=== PATIENT | female | born 1965 | race Caucasian/White ===

== ENCOUNTER 2025-08-01 23:12 | Inpatient (IN) | payer BC, SELFPAY ==
--- NOTE | ~2025-08-01 | XR_ITS ---
CLINICAL HISTORY: epigastric pain 1 view chest x-ray Comparison: None provided Findings: Low lung volumes with mild bibasilar atelectasis and/or pneumonitis. Mild emphysematous changes suggested. Mild/borderline cardiomegaly accentuated by AP technique. No definite pneumothorax or pleural effusion. Degenerative changes include imaged left shoulder. IMPRESSION: Mild bibasilar atelectasis/pneumonitis. This document has been electronically signed by: Chip Phillips MD on 08/02/2025 01:29:22
--- NOTE | ~2025-08-01 | US_ITS ---
CLINICAL HISTORY: GBD and CBD only --- Additional Notes or Special Instructions: concern for cholecystitis US abdomen limited Comparison: CT/SR - CT ABDOMEN PELVIS W IV CON - 08/02/25 00:36 EST Findings: The common duct is 6.3 mm in diameter. Multiple echogenic, shadowing gallstones are identified within the gallbladder lumen. The gallbladder wall is borderline thickened, measuring 3 mm. Minimal pericholecystic fluid visualized. Pain reported at the right upper quadrant during the examination according to the technologist. IMPRESSION: 1. Cholelithiasis with borderline gallbladder wall thickening measuring 3 mm in thickness. There is minimal pericholecystic fluid. These findings may be seen with acute cholecystitis in the appropriate clinical setting. Clinical correlation is advised. May consider nuclear medicine HIDA scan for further evaluation as clinically directed. This document has been electronically signed by: Jaxson Rodriguez MD on 08/02/2025 03:36:50
--- NOTE | ~2025-08-01 | CT_ITS ---
CLINICAL HISTORY: RLQ and RUQ pain CT abdomen and pelvis with contrast Comparison: None provided Findings: Mild bibasilar atelectasis/pneumonitis of the imaged lung bases. Asymmetry of the imaged glandular tissue in the [id number]. Small pericardial effusion with mild/borderline cardiomegaly. Mild periportal edema. Imaged CBD measures 7 mm diameter. Mild pericholecystic fluid is nonspecific. Distention of the gallbladder noted. Adrenal glands are normal. Pancreas partly obscured and otherwise unremarkable. The spleen is nonenlarged. Apparent filtered contrast could obscure medullary calcinosis and small stones. No hydronephrosis. Small retroperitoneal and mesenteric lymph nodes are nonspecific and likely reactive. No small bowel obstruction. Severe stool burden is noted, including in the cecum. The appendix is not definitively seen. Question mild wall thickening of the terminal ileum as can be associated with enteritis and inflammatory bowel disease. Metal artifacts noted including from umbilicus piercing. Mild free fluid in the pelvis nonspecific and may be reactive. Uterus is anteverted. No adnexal soft tissue mass by CT. Mild wall thickening of the urinary bladder is noted. Small bilateral fat containing inguinal hernias. Degenerative changes include the hips, left worse than right. Degenerative disc changes and facet arthropathy are multifocal. 7 mm retrolisthesis of the L1-L2, with mild-moderate spinal stenosis by CT. 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 IMPRESSION: 1. Pericholecystic fluid about the distended gallbladder. This is nonspecific by CT and can be seen with cholecystitis. 2. Mild periportal edema. 3. Severe stool burden. No small bowel obstruction. This document has been electronically signed by: Chip Phillips MD on 08/02/2025 01:42:07
[2025-08-01 23:17] VITALS: BP 122/72; PULSE 78; RESP 16; TEMP 2.6; TEMP 36.6; O2SAT 97; BMI 29.2
--- NOTE | 2025-08-01 23:24 | ED_ITS ---
HPI - Abdominal Pain General Chief Complaint: Abdominal Pain Stated Complaint: abd pain Time Seen by Provider: 08/01/25 23:24 Source: patient and RN notes reviewed Mode of arrival: ambulatory Limitations: no limitations History of Present Illness ED Provider: Radha Galo PA-C HPI narrative: The patient presents to the ED with a 3-day history of persistent, constant epigastric abdominal pain that began Tuesday evening and has progressively worsened. Pain radiates to/associated tenderness in the right upper and right lower quadrants. The pain is described as constant (not throbbing or cramping) and currently ?pretty bad,? interfering with sleep for the past 2-3 nights. Associated symptoms include nausea and multiple episodes of non-bloody emesis (one episode Tuesday, 1?2 episodes Tuesday, and two episodes today; last episode 2?3 hours prior to evaluation). She reports poor appetite and has not eaten since Thanksgiving lunch today; able to sip water without worsening pain. Denies diarrhea, hematemesis, or excessive alcohol use. Stools are soft but not loose; voiding urine normally. Slight discomfort with deep inspiration over the affected area. No prior abdominal surgeries. She recalls one previous, less- severe episode of similar pain but otherwise no history of comparable symptoms. No fevers or coughing. No urinary symptoms. No history of abdominal surgeries. No analgesics at home. She cannot recall this occurring in past. She relays her mom didn't have appendicitis until the age of 60. MD elicited complaint: abdominal pain Related Data Allergies Allergy/AdvReac Type Severity Reaction Status Date / Time No Known Allergies Allergy Verified 08/01/25 23:17 Review of Systems Review of Systems Yes all other systems are reviewed and are negative PMFSH Past Medical History Attestation statement: The following information was validated with the patient. Source: nursing notes reviewed Social History Social History Advance Directives: No Advance Directives Information Provided: Yes Physical Exam ED Exam Exam: General: Appears in no acute distress, appears well nourished body habitus is overweight, appears stated age. No septic or ill-appearing. Vitals reviewed normal, PMH/Social and Surgical hx reviewed including allergies and current medications. -no prior visits in ED here Head: Normocephalic, no obvious trauma or skin lesions noted. Eyes: EOMI, conjunctiva and sclera clear ENMT: dry oral mucosa, tongue and uvula midline, no trismus, lips normal, no lymphadenopathy Neck: trachea midline Cardiovascular: peripheral perfusion normal, Regular heart rate, regular rhythm Respiratory: no respiratory distress, lungs clear, chest wall nontender Abdomen: nondistended, TTP to RUQ, epigastric and RLQ, no gaurding or rigidity, negative peritoneal signs, no rebound ttp, no flank, CVA or bladder TTP Extremities: warm and moving without difficulty Psych: Cooperative and calm Neuro: Alert and oriented. Vital Signs: Vital Signs - 24 hr 08/01/25 23:17 08/02/25 00:06 Temperature 36.6 F L 98.4 F Pulse Rate 78 Respiratory Rate 16 Blood Pressure 122/72 Pulse Oximetry 97 Oxygen Delivery Method Room Air BMI result Body Mass Index 29.2 Medical Decision Making Medical Decision Making MDM Narrative: 60 year old F arriving to the ED today for evaluation of abdominal pain with associated n/v over 2 days. Upon arrival to ED, she is afebrile, normotensive and not appearing in any acute distress. She is not toxic or ill appearing. On physical exam, she has generalized tenderness in both the right lower and right upper quadrant but without gaurding or peritoneal signs. As pain was reported as moderate and due to decreased oral intake, abd labs, CT scan of abd/pelvis, IVFs and IV pain medications were ordered. She is denying any respiratory and sxs. Differentials at this point include hepatobiliary disease, pancreatitis, viral vs food gastroenteritis, noninfectious diverticulitis/colitis. Very less likely without sxs but also considered kidney stone and UTI. Patient does not meet SIRS criteria at this time and sepsis is not suspected. Mild leukocytosis of 11.9 with shift. CMP reassuring: no electrolyte imbalance, hepatobiliary disease, pancreatitis noted in labs, UA without concern for infection. prelim CXR without obvious mass or hiatal hernia. CT scan gb appears abd, no SBO noted Formal reads: 145: CT scan: IMPRESSION: 1. Pericholecystic fluid about the distended gallbladder. This is nonspecific by CT and can be seen with cholecystitis. 2. Mild periportal edema. 3. Severe stool burden. No small bowel obstruction CXR: IMPRESSION: Mild bibasilar atelectasis/pneumonitis. The mild bibasilar findings likely to be reactive changes rather than primary pulmonary pathology in this current presentation. Given CT findings, this strongly suggests acute cholecystitis. The gallbladder is likely in the edematous phase of acute cholecystitis. The stool burden on CT could explain patient's RLQ tenderness. Will empirically order 2g of cefotetan and another liter if IVF. Patient still indorsing pain but not nauseous, and additional morphine dose has been ordered. Lactic acid normal. 300: US of GBD abd CBD supportive of acute cholecystitis. Consult to general surgeon Dr. Carvalho has been placed. He has accepted patient to his service. Differential Diagnosis Differential Diagnoses: The differential diagnosis associated with the presentation includes See MDM Admission/Observation Consideration of admission/observation: Escalation of care including admission/observation considered Consult Healthcare Provider Management of the patient was discussed with: Mobile Sales Technician (Dr. Carvalho general surgeon) Lab Data [facility] Lab Attestation statement: I reviewed the patient's lab results. 08/01/25 23:41 08/01/25 23:41 Labs: Lab Results 08/01/25 08/02/25 08/02/25 Range/Units 23:41 01:16 02:28 WBC 11.9 H (4.8-10.8) X10*3/uL RBC 3.92 L (4.20-5.50) X10*6/uL Hgb 12.7 (12.0-16.0) g/dl Hct 36.7 L (37.0-47.0) % MCV 93.6 (80.0-98.0) fL MCH 32.4 (27.0-33.0) pg MCHC 34.6 (31.0-35.0) g/dl RDW 12.0 (11.0-16.0) % Plt Count 302 (160-400) X10*3/uL MPV 9.9 (9.4-12.3) fL Immature Gran % (Auto) 0.3 (0.0-0.4) % Neut % (Auto) 84.3 H (45-73) % Lymph % (Auto) 8.3 L (20-40) % [place] % (Auto) 6.1 (2-11) % Eos % (Auto) 0.7 (0-4) % Baso % (Auto) 0.3 (0-2) % Lymph # (Auto) 1.0 L (1.2-4.9) X10*3/uL [place] # (Auto) 0.7 (0.1-1.2) X10*3/uL Eos # (Auto) 0.1 (0.0-0.4) X10*3/uL Baso # (Auto) 0.0 (0.0-0.2) X10*3/uL Abs Immat Gran (auto) 0.03 (0.00-0.03) X10*3/uL Absolute Neuts (auto) 10.0 H (2.0-8.3) x10*3/uL Absolute Nucleated RBC 0.000 (0.0-0.012) X10*3/uL Nucleated RBC % (auto) 0.0 (0.0-0.2) /100WBC Sodium 138 (135-145) mmol/L Potassium 3.7 (3.3-5.1) mmol/L Chloride 107 (96-108) mmol/L Carbon Dioxide 22 (22-29) mmol/L Anion Gap 13 (12-20) BUN 12 (9-16) mg/dL Creatinine 0.74 (0.5-1.4) mg/dL Estim Creat Clear Calc 79.2 Estimated GFR > 60 Random Glucose 174 H (60-115) mg/dL Lactic Acid 1.1 (0.5-2.0) mmol/L Calcium 9.3 (8.4-10.2) mg/dL Total Bilirubin 0.4 (0.0-1.0) mg/dL AST 24 (5-31) U/L ALT 16 (0-31) U/L Alkaline Phosphatase 53 (39-117) U/L Total Protein 6.8 (6.5-8.0) g/dL Albumin 4.3 (3.5-5.0) g/dL Lipase 37 (8-78) U/L Urine Color Yellow Urine Appearance Clear Urine pH 6.0 (5.0-9.0) Ur Specific [place] >= 1.030 H (1.005-1.025) Urine Protein 30 (1+) H (Neg-Trace) mg/dL Urine Glucose (UA) Negative (Negative) mg/dL Urine Ketones Negative (Negative) mg/dL Urine Blood Small (1+) H (Negative) Urine Nitrite Negative (Negative) Ur Leukocyte Esterase Negative (Negative) Urine RBC 6-10 H (0-2) /HPF Urine WBC 0-5 (0-5) /HPF Ur Squamous Epith Cells 0-2 (0-2) /HPF Urine Bacteria None Seen (None Seen) Hyaline Casts 0-2 (0-2) /LPF Independent Interpretation I performed an independent interpretation of an: Plain X-Ray, Ultrasound and CT Scan Interpretation: See MDM Radiology Impression Discussion of test interpretation with radiology: I have reviewed the radiologist's reading. Prescription Management I considered prescription management with: Antibiotic Medications Administered Generic Name Dose Route Start Last Admin Trade Name Freq PRN Reason Stop Dose Admin Sodium Chloride 1,000 mls @ 999 mls/hr 08/02/25 02:16 08/02/25 03:11 Ns IV 08/02/25 03:16 999 mls/hr .Q1H1M ONE Administration Discontinued Medications Generic Name Dose Route Start Last Admin Trade Name Freq PRN Reason Stop Dose Admin Cefotetan Disodium 2 gm 08/02/25 02:14 08/02/25 03:08 Cefotetan Disodium 2 Gm Vial IVPUSH 08/02/25 02:15 2 gm ONCE ONE Administration Sodium Chloride 1,000 mls @ 999 mls/hr 08/01/25 23:47 08/02/25 00:02 Ns IV 08/02/25 00:47 999 mls/hr .Q1H1M ONE Administration Iohexol 85 ml 08/02/25 00:56 08/02/25 00:56 Iohexol 350 Mg/Ml 100 Ml Infus..Btl IV 08/02/25 00:57 85 ml ONCE ONE Administration Morphine Sulfate 2 mg 08/01/25 23:47 08/02/25 00:02 Morphine Sulfate 4 Mg/Ml Cartridge IVPUSH 08/01/25 23:48 2 mg ONCE ONE Administration Protocol Morphine Sulfate 4 mg 08/02/25 02:58 08/02/25 03:08 Morphine Sulfate 4 Mg/Ml Cartridge IVPUSH 08/02/25 02:59 4 mg ONCE ONE Administration Protocol Ondansetron HCl 4 mg 08/01/25 23:25 08/02/25 00:02 Ondansetron Hcl 4 Mg/2 Ml Vial IVPUSH 08/01/25 23:26 4 mg ONCE ONE Administration Critical Care Time Critical Care Time Critical Care Time: Yes Total Critical Care Time: 35 Attestation: This patient required critical care. Due to the fact that the patient required a significant amount of one on one physician ? patient contact time, ordering and review of studies, arranging urgent treatment with development of a management plan, evaluation of patient's response to treatment with frequent reassessments, and discussions with other providers this patient required critical care time in excess of 30 minutes. Critical care time was indicated due to the inherent instability and/or potential for instability in this patient. The critical care time that is allocated to this patient is above and beyond any time spent on any other billable procedures performed on this patient. Discharge Plan Discharge Clinical Impression: Acute cholecystitis Abdominal pain Qualifiers: Abdominal location: multiple sites Qualified Code(s): R10.85 - Abdominal pain of multiple sites Patient Disposition: Admitted As Inpatient Print Language: Estonian
[2025-08-01 23:52] LABS: Hematocrit 36.7 % (37.0-47.0); Hemoglobin 12.7 g/dl (12.0-16.0); Imm Gran Abs Auto 0.03 X10*3/uL (0.00-0.03); Imm Gran Pct Auto 0.3 % (0.0-0.4); Lymphocytes Absolute Auto 1.0 X10*3/uL (1.2-4.9); MANUAL DIFF FLAG NO; Mean Corpuscular HGB Conc 34.6 g/dl (31.0-35.0); Mean Corpuscular Hemoglobin 32.4 pg (27.0-33.0); Mean Corpuscular Volume 93.6 fL (80.0-98.0); NRBC Abs Auto 0.000 X10*3/uL (0.0-0.012); NRBC Pct Auto 0.0 /100WBC (0.0-0.2); Platelet Count 302 X10*3/uL (160-400); Red Blood Count 3.92 X10*6/uL (4.20-5.50); White Blood Count 11.9 X10*3/uL (4.8-10.8)
--- OUTSIDE RECORDS SUMMARY | 2025-08-01 23:54 | XMS_ITS | Encounter Summary ---
Author Organization [facility] Address [address] [place] [address] Care Team Providers Care Hot Box Checker Name Role Phone Dunia Barksdale MD Primary Care Provider Encounter Details Date Type Department Care Team (Late st Contact Info) Description 10/14/2017 myChart Message [address] [id number] Unmanned Equipment Operator: Jf Mott MD [address] [place] [phone] RE: Referral Request Social History Tobacco Use Types Packs/Day Years Used Date Smoking Tobacco: Never Smokeless Tobacco: Never Comments:: Comments Unknown Sex and Gender Information Value Date Recorded Sex Assigned at Female 10/24/2021 8:35 AM EST Legal Sex Female 8:07 AM EDT Gender Identity Female 10/24/2021 8:35 AM EST Sexual Orientation Straight 10/24/2021 8: 35 AM EST documented as of this encounter Plan of Treatment Upcoming Encounters Date Type Department Care Team (Late st Contact Info) Description 10/23/2025 1:00 PM EST Office Visit [address] [address] Unmanned Equipment Operator: Dunia Daniel MD [address] [place] [phone] documented as of this encounter Visit Diagnoses Not on filedocumented in this encounter Care Teams Hot Box Checker Relationship Specialty Start Date End Date Dunai Barksdale MD [address] [place] [address] PCP - General Family Medicine 01/07/25 documented as of this encounter
--- OUTSIDE RECORDS SUMMARY | 2025-08-01 23:54 | XMS_ITS | Encounter Summary ---
Author Organization [facility] Address [address] [place] [address] Care Team Providers Care Sfdc Technical Architect Name Role Phone Dunia Barksdale MD Primary Care Provider Encounter Details Date Type Department Care Team (Late st Contact Info) Description 09/27/2017 myChart Message [address] [phone] Phlebotomy Services Technician: Jf Mott MD [address] [place] [phone] RE: Visit Follow-Up Question Social History Tobacco Use Types Packs/Day Years [...] Description 10/23/2025 1:00 PM EST Office Visit [address] [phone] Phlebotomy Services Technician: Dunia Daniel MD [address] [place] [phone] documented as of this encounter Visit Diagnoses Not on filedocumented in this encounter Care Teams Sfdc Technical Architect Relationship Specialty Start Date End Date Dunia Barksdale MD [address] [place] [address] PCP - General Family Medicine 01/07/25 documented as of this encounter
--- OUTSIDE RECORDS SUMMARY | 2025-08-01 23:54 | XMS_ITS | Clinical Summary ---
Author Organization [facility] Address [address] [place] [address] Care Team Providers Care Planisher Name Role Phone Dunia Barksdale MD Primary Care Provider Allergies No known active allergies Medications clobetasoL (TEMOVATE) 0.05% cream Apply topically to the affected area 2 times a day. 30 g 3 4 Active sertraline (ZOLOFT) 100 mg tablet Take 1.5 tablets (150 mg total) by mouth once a day. 270 tablet 5 12/16/19 26 Active Active Problems Problem Noted Date Diagnosed Date Healthcare maintenance 08/09/2017 Assessment & Plan (04/19/2024 2:51 PM EDT): Healthcare maintenance visit done, I reviewed healthcare gaps and she is up-to-date with the immunizations and labs that she would like. I will check lipids and A1c today I would recommend fall to get the flu and COVID. Fit test given for colonoscopy screening return in 1 year and will be with a new provider Assessment & Plan (10/27/2021 2:38 PM EST): She is overdue for many things, mammogram will be ordered lipids and A1c will be done immunizations up-to-date, fit test was scheduled. Next year she can have her mammogram diet exercise all discussed. Return in 1 year or sooner. Assessment & Plan (06/20/2019 6:06 PM EDT): Overall generally well, weight is up which is a concern continue swimming on a regular basis I did discuss diet it seems like it is fairly good. Mammogram will be scheduled A1c flu shot and shot I will be given today. Lipids have been excellent no need to recheck that return on a yearly basis. Cancer screening discussed, will opt for a fit test today. Assessment & Plan (08/09/2017 3:08 PM EST): Pap GC and chlamydia test done, lipids and other labs will be done as well. Concerned about the weight loss but it seems stress related. Will check labs see above. We will give her the phone number to call for a mammogram. Immunizations up-to-date. She does not want a flu shot. She does have a lot of stressors but with good support from her boyfriend Allergic rhinitis 03/28/2017 Conductive hearing loss, middle ear 05/20/2015 Assessment & Plan (04/19/2024 2:50 PM EDT): For now she would rather just watch and follow reassured that there is no wax blockage and that this could be a long-term issue reevaluation by ENT is something possible that we could do she lives in [facility] may be at [facility] Assessment & Plan (10/27/2021 2:37 PM EST): We actually talked about irrigation of the right ear which she is always had problems in that right ear, however at the end of the visit 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 Eczema 10/25/2013 Assessment & Plan (04/19/2024 2:50 PM EDT): Refill clobetasol to use on a limited basis for her dyshidrotic eczema on her fingers Assessment & Plan (10/27/2021 2:37 PM EST): Minor localized area on her finger she wants a refill of Temovate that she will use only for her finger prescription was sent Assessment & Plan (06/20/2019 6:07 PM EDT): Very mild and occasional eczema on her fingers. Betazole is worked before, discuss is a strong cream to just use sparingly on the hands only. Depression 10/25/2013 Assessment & Plan (04/19/2024 2:50 PM EDT): She is clinically stable doing well long-term on citalopram 1-1/2 pills a day and keeps her stable disease happy with that without any side effects no need at all to stop taper or change Assessment & Plan (10/27/2021 2:36 PM EST): She has had a lot of changes on the left, mostly positive except for her father dying. Relationship break-up trended to be a positive factor. She thinks the sertraline is helping and doing well and PHQ-9 was 4 and SCARLET-7 was 5 so I think mental health [place] she is doing well continue current dose return in 1 year Assessment & Plan (06/20/2019 6:06 PM EDT): She is in a much better place now depression is quite stable she is good overall plan music and singing along with a special and teaching. We did discuss her sertraline 100 mg tabs one half daily no need to cut down on the dose even though she is feeling well she would rather stay on it feels more comfortable with that. Assessment & Plan (08/09/2017 3:08 PM EST): She has multiple stressors going on will increase sertraline 150 mg total, and hopefully she has good support and will be talking to the Transifex potentially to help her with some of the work stressors per Prediabetes 08/08/2012 Assessment & Plan (04/19/2024 2:49 PM EDT): Off-and-on minimal prediabetes lifestyle discussed fairly healthy overall. Will check A1c and lipids today Assessment & Plan (10/27/2021 2:37 PM EST): She states her weight is up some diet is not optimal, A1c has been prediabetes about 5 to 6 years ago than normal the last few times I will check it today along with lipids Assessment & Plan (08/09/2017 3:08 PM EST): She has mild prediabetes A1c will be checked today, with a weight loss from stress doubt is going to be worse Resolved Problems Problem Noted Date Diagnosed Date Resolved Date Hyperglycemia 04/19/2024 04/19/2024 Abrasion of right cornea 10/30/2019 Chronic midline low back crescencio n without sciatica 04/03/2018 06/20/2019 Stress reaction 11/01/2017 06/20/2019 Abnormal weight loss 08/09/2017 019 Assessment & Plan (08/09/2017 3:08 PM EST): I believe the weight loss is more she was trying and then stress related but I will check CBC TSH A1c today. 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 Eustachian tube dysfunction 05/20/2015 08/09/2017 Encounters Date Type Department Care Team Description 06/18/2025 Orders Only [address] [address] Operating Cost Clerk: Mira Deleon MD 06/13/[address] [address] Operating Cost Clerk: Dunia Daniel MD 06/12/2025 myChart Message [address] [address] Operating Cost Clerk: Dunia Daniel MD Medication Refill 06/12/[address] [address] Operating Cost Clerk: Christian Abdalla MD 06/12/[address] [address] Operating Cost Clerk: Katie Knott MD from Last 3 Months Immunizations Immunization Administration Dates Next Due Covid-19 Monovalent Vaccine, Moderna, mRNA, PF 0 12/20/2020,11/22/2020 Diphtheria and Tetanus Toxoi ds, Adsorbed for Pediatric Use 10/31/2001 INFLUENZA, SPLIT VIRUS, TRIVALENT, PF 07/04/2012 ,08/04/2005 Influenza, Injectable, Quadrivalent, Preservativ e Free 06/20/2019 Tetanus Toxoid, Reduced Diph theria Toxoid, and Acellular Pertussis Vaccine, Adsorbed 05/06/2010 Tetanus and Diphtheria Toxoi ds, Adsorbed, Preservative Free (2 Lf of Tetanus Toxoid and 2 Lf of Diphtheria Toxoid) 06/20/2019 Tuberculin Skin Test; Purifi ed Protein Derivative Solution, Intradermal 11/01/2007 Family History Medical History Relation Name Comments No Known Problems Brother Heart disease Father No Known Problems Mother Other Other 1 Grandmother Fam wilver History of depression Other Other 2 Family history of No pertinent family history Breast cancer Sister Eri Relation Name Status Comments Brother Alive Father Mother Alive Other 1 Other 2 Sister Eri Alive dx'd age 59, [place] Social History Tobacco Use Types Packs/Day Years Used Date Smoking Tobacco: Never Smokeless Tobacco: Never Tobacco Cessation:Counseling Given: Not Answered Comments:: [facility] Utilities Answer Date Recorded In the past 12 months has th e electric, gas, oil, or water company threatened to shut off services in your home? No 04/16/2024 Hunger Vital Sign Answer Date Recorded Within the past 12 months, y ou worried that your food would run out before you got the money to buy more. Never true 04/16/20 24 Within the past 12 months, t he food you bought just didn't last and you didn't have money to get more. Never true 04/16/2024 Transportation Answer Date Recorded In the past 12 months, has l ack of reliable transportation kept you from medical appointments, meetings, work or from getting things needed for daily living? No 04/16/2024 Housing Answer Date Recorded Housing Risk Low 2 04/16/2024 Housing Risk Medium Not on file 04/16/2024 Housing Risk High Not on file 04/16/2024 What is your living situation today? [facility]AD[facility] 04/16/2024 Comments No Sex and Gender Information Value Date Recorded Sex Assigned at Female 10/24/2021 8:35 AM EST Legal Sex Female 8:07 AM EDT Gender Identity Female 10/24/2021 8:35 AM EST Sexual Orientation Straight 10/24/2021 8: 35 AM EST Last Filed Vital Signs Vital Sign Reading Time Taken Comments Blood Pressure 96/60 04/19/2024 9:41 AM EDT Pulse 65 04/19/2024 9:41 AM EDT Temperature 36.2 C (97.2 F) 04/19/2024 9:41 AM EDT Respiratory Rate - - Oxygen Saturation 96% 03/28/2017 11:16 AM EDT Inhaled Oxygen Concentration - - Weight 77.1 kg (170 lb) 04/19/2024 9:41 AM EDT Height 162.6 cm (5' 4 ) 04/19/2024 9:41 AM EDT Body Mass Index 29.18 04/19/2024 9:41 AM EDT Plan of Treatment Upcoming Encounters Date Type Department Care Team (Late st Contact Info) Description 10/23/2025 1:00 PM EST Office Visit [facility] [address] [place] [phone] Operating Cost Clerk: Dunia Daniel MD [address] [place] [address] [phone] Health Maintenance Due Date Last Done Comments Cologuard 1965 Colonoscopy 1965 Sigmoidoscopy 1965 Pneumococcal Vaccine: 50+ Years (1 of 1 - PCV) 2013 Zoster Vaccines (1 of 2) 2013 HPV and Pap Smear 07/04/2017 07/04/2012, , 11/01/2007, Additional history exists Pap Smear 08/09/2020 08/09/2017, 06/07, 05/06/2010, Additional history exists Alcohol/Substance Use Screening 09/05/2024 04/16/2024 Depression Screening and Follow-Up 09/05/2024 04/16/2024 Social Drivers of Health Annual Screening 09/05/2024 Influenza Vaccine (#1) 2025 2, 06/08/2021, 06/20/2019, Additional history exists COVID-19 Vaccine ( - season) 2025 07/17/2021, 12/20/2020, 11/22/2020 Colon Cancer Screening 05/27/2025 FOBT / Fit Test 05/27/2025 05/27/2024, 10/29/2021 Mammogram 12/18/2025 12/19/2023, 07/07, 12/27/2014, Additional history exists DTaP,Tdap,and Td Vaccines (4 - Td or Tdap) 06/20/2029 06/20/2019, 05/06/2010, 10/31/2001 Cervical Cancer Screening Discontinued HIV Screening Discontinued Hepatitis B Vaccines Aged Out No long er eligible based on patient's age to complete this topic Hepatitis C Screening Discontinued RSV Vaccine (60+ years old and patients) Discontinued Procedures * Due to [place] [employer] law, this organization might not be sharing negative HIV tests. Procedure Name Priority Date/Time Associated Diagnosis Comments OCCULT BLOOD, FECAL (FIT) Routine 05/27/2024 8:44 AM EDT Healthcare maintenance BAM BILATERAL SCREENING DIGITAL MAMMOGRAM WITH BELTRAN Routine 12/19/2023 2:00 PM EDT Encounter for screening mammogram for malignant neoplasm of breast PAP Routine 08/09/2017 10:32 AM EST Healthcare maintenance PAP W/HPV, CONVERSION Routine 07/04/2012 4:55 PM EDT from Last 3 Months or Most Recently Relevant to Health Maintenance Results * Due to [place] [employer] law, this organization might not be sharing negative HIV tests. * Occult Blood, Fecal (FIT) (05/27/2024 8:44 AM EDT) Fecal Occult Bld Negative Negative [place] MANUAL 06/01/2024 9:12 AM EDT [facility] Stool Rectal route / Unknown Non-Blood Collection / Unknown 05/27/2024 8:44 AM EDT 06/01/2024 8:44 AM EDT Jf Rendon MD LAB BODY FLUIDS AND ST OOLS ORDERABLES Final Result [facility] [address] [place] [address], [place] * BAM Bilateral Screening Digital Mammogram With Beltran (12/19/2023 2:00 PM EDT) Anatomical Region Laterality Modality Breast Bilateral Mammography Narrative 12/25/2023 8:03 AM EDT EXAMINATION BAM Bilateral Screening Digital Mammogram With Beltran. INDICATION Amanda Layton is a 58 y.o. female and is seen for: BAM Bilateral Screening Digital Mammogram With Beltran. CC and MLO views were obtained. FDA approved Optify AI (artificial intelligence) software and R2 CAD were used as a concurrent reading aid in the interpretation of this study. COMPARISON To prior mammograms Bilateral Breast Findings: The breasts are heterogeneously dense, which may obscure small masses. No significant masses, calcifications or other abnormalities are seen. IMPRESSION BI-RADS ATLAS category (overall): 1 - Negative MANAGEMENT Routine Screening Mammogram in 1 Year is recommended for bilateral. The patient was entered into a reminder system with a subsequent mammography target date. DENSE BREAST RECOMMENDATIONS: The patient has dense breast tissue shown on mammography. Per [place] [employer] Appropriateness Criteria for Breast Cancer Screening (https://acsearch.acr.org/docs/10190/Narrative/) patient may benefit from tomosynthesis on future mammography and supplemental imaging with automated breast ultrasound (ABUS) or breast MRI depending on risk factors. Automated Breast Ultrasound (ABUS) is now available at both [facility] and in the Department of Mammography at [facility]. To schedule a patient, you can either enter an ABUS order into [facility] EMR (type in ABUS), call [place] Central Scheduling at [phone], or call [facility] Central Scheduling at [phone]. To fax an external order: [place] [phone] and [facility] [phone]. If this radiology report contains a blank impression section, it is an incomplete radiology report. Please contact the interpreting radiologist or applicable radiology division as soon as possible to obtain the completed interpretation. Jf Rendon MD IMG BI PROCEDURES Rica l Result * Pap (08/09/2017 10:32 AM EST) Specimen Adequacy Satisfactory for evaluation, endocervical/jarrett sformation zone component absent [facility] MANUAL 08/17/2017 8:04 AM EST [facility] Pathologist Cytology Interpretation Negative for intraepithelial lesion or malignancy. [facility] MANUAL 08/17/2017 8:04 AM EST [facility] at 0804 EST Comment:This is the result o f a morphological screening test with an inherent possibility of a false negative interpretation. Pct Statement This Pap test was examined by the [facility], [employer], [place], [place]. This Pap test was examined in accordance with the [facility] Cyt[facility] Laboratory written policy, which incorporates all CLIA mandates. Screening guidelines can be found in Am J Clin Pathol 2012;137:516-542. We endorse the practice guidelines developed by ASCCP and published in the Journal Lower Genital Tract Disease 17(5):S1-S27 (2013). [facility] MANUAL 08/17/2017 8:04 AM EST [facility] Clinical History 52 post-menapausal screening pap [facility] MANUAL 08/17/2017 8:04 AM EST [facility] HPV High Risk DNA Subtypes NEGATIVE [facility] MANUAL 08/17/2017 8:04 AM EST [facility] Test Description Specimens were tested for high risk HPV using the FDA approved Digene Hybrid Capture II kit, in the Diagnostic Molecular Oncology Lab at [facility]. This test can detect HPV high risk types 16, 18, 31, 33, 35, 39, 45, 51, 52, 56, 58, 59 and 68. High-risk subtypes of HPV are found in 96% of patients with high grade squamous intraepithelial lesions and cervical squamous cell carcinoma. Additional studies may be indicated in spite of a negative HPV test, e.g. in patients with a friable cervix or multiple previous abnormal pap tests. HPV testing is not recommended for managing patients with atypical glandular cells. Not all high-risk HPV infections are associated with a histologic or cytologic abnormality. We endorse the recommendations of the [place] Society for Colposcopy and Cervical Pathology for management of pap test results, available at www.asccp.org. ASCCP guidelines also recommend HPV 16/18 genotyping in patients over the age of 30 who have had positive high risk HPV testing, but have a negative morphologic Pap test: (http://www.asccp .org/consensus.sh tml). [facility] MANUAL 08/17/2017 8:04 AM EST [facility] ASR Disclaimer The performance characteristics of this test have been validated by the Laboratory of Diagnostic Molecular Oncology. They have not been cleared or approved by the U.S. Food and Drug Administration (FDA). The FDA has determined that such clearance or approval is not necessary. The laboratory is certified under the Clinical Laboratory Improvement Amendments of 1988 (CLIA-88) as qualified to perform high complexity clinical laboratory testing. [facility] MANUAL 08/17/2017 8:04 AM EST [facility] Resulting Agency Case was signed out at [facility], Department of Pathology, [employer] 3 CLIA [id number] [facility] MANUAL 08/17/2017 8:04 AM EST [facility] Report Header Gynecologic Cytology Report Case: [id number] Authorizing Provider: Jf Rendon MD Collected: 08/09/2017 1032 Ordering Location: [facility] Received: 08/09/2017 1030 [facility] First Screen: Timo Greenberg Specimen: Screening ThinPrep Pap, Cervix/Endocervix 08/17/2017 8:04 AM EST [facility] Biopsy specimen (specimen) Cervix uteri structure / Unknown 08/09/2017 10:32 AM EST 08/09/2017 10:30 AM EST us Jf Rendon MD LAB PATHOLOGY/CYTOLOGY ORDERABLES Final Result [facility] [address] [place] [address], [place] * Pap w/HPV (07/04/2012 4:55 PM EDT) Path Procedure HPV ([id number]) 1 TPGAS ([id number]) 1 Edited by: [id number] [facility] Specimen Labeled As: 1 CERVICAL/ENDOCERVI DARIUS CYTO MATERIAL - Edited by: [id number] NEIL [facility] Additional Test Information Specimens were tested for high risk HPV using the FDA approved Digene Hybrid Capture II kit, in the Diagnostic Molecular Oncology Lab at [facility]. This test can detect HPV high risk types 16, 18, 31, 33, 35, 39, 45, 51, 52, 56, 58, 59 and 68. High-risk subtypes of HPV are found in ~96% of patients with high grade squamous intraepithelial lesions and cervical squamous cell carcinoma. Additional studies may be indicated in spite of a negative HPV test, e.g. in patients with a friable cervix or multiple previous abnormal Pap tests. HPV testing is not recommended for managing patients with atypical glandular cells. Not all high-risk HPV infections are associated with a histologic or cytologic abnormality. We endorse the recommendations of the [place] Society for Colposcopy and Cervical Pathology for management of Pap test results, available at www.asccp.org. ASCCP guidelines also recommend HPV 16/18 genotyping in patients over the age of 30 who have had positive high risk HPV testing, but have a negative morphologic Pap test (http://www.asccp. org/consensus.shtm l). The performance characteristics of this test have been validated by the Laboratory of Diagnostic Molecular Oncology. They have not been cleared or approved by the U.S. Food and Drug Administration (FDA). The FDA has determined that such clearance or approval is not necessary. The laboratory is certified (CLIA-88) to perform high complexity clinical laboratory testing. Edited by: [id number] [facility] Diagnosis ThinPrep Pap Test Adequacy: Satisfactory for evaluation Interpretation: Negative for Intraepithelial Lesion or Malignancy This Pap test was examined by the [facility], [employer], [place], [place]. - High risk HPV DNA subtypes: NEGATIVE Edited by: [id number] -[id number] 4 [place] [facility] Gynecologic Clinical Data Specimen source:, THINPREP (CERVICAL ONLY) [facility] Gynecologic Clinical Data First date of LMP:, > 2 weeks ago [facility] Pathology Codes Client Order Code:, [id number] [facility] Pathology Codes Bill Type:, 3RD [employer] BILLING [facility] Completed Report [id number] CYTOPATH C/V AUTORESCR SCR 1 [facility] Marker 1 MDAGA, NEGATIVE [facility] Marker 2 MSJM [facility] Marker 3 NILM,NILM [facility] Marker 4 RIM,RECEIVED IN MOLECULAR [facility] Marker 5 TW,[facility] Cc Results To SAVANNAH SUGGS [id number] [facility] Signature REPORT SIGNED: APRIL CANTRELL 07/12/12 [facility] Sign Out Audit APRIL CANTRELL [id number] FINAL [facility] [id number] [facility] Cytology / Unknown 2 4:55 PM EDT 07/06/2012 4:55 PM EDT us Soha Fox LAB HISTORICAL RESULTS Final Res ult [facility] [place] [address], from Last 3 Months or Most Recently Relevant to Health Maintenance Insurance [facility] HMO/POS Care Teams Planisher Relationship Specialty Start Date End Date Dunia Barksdale MD [address] [place] [phone] PCP - General Family Medicine 01/07/25
--- OUTSIDE RECORDS SUMMARY | 2025-08-01 23:54 | XMS_ITS | Encounter Summary ---
Author Organization [facility] Address [address] [place] [address] Care Team Providers Care Bookmobile Clerk Name Role Phone Dunia Barksdale MD Primary Care Provider Encounter Details Date Type Department Care Team (Late st Contact Info) Description 12/16/2017 myChart Message [address] [address] Aircraft Load Controller: Jf Mott MD [address] [place] [phone] RE: Referral Request Social History Tobacco Use [...] Description 10/23/2025 1:00 PM EST Office Visit [address] [address] Aircraft Load Controller: Dunia Daniel MD [address] [place] [phone] documented as of this encounter Visit Diagnoses Not on filedocumented in this encounter Care Teams Bookmobile Clerk Relationship Specialty Start Date End Date Dunia Barksdale MD [address] [place] [address] PCP - General Family Medicine 01/07/25 documented as of this encounter
[2025-08-02] VITALS (13 sets, daily range): BP systolic 87–130; BP diastolic 43–71; PULSE 58–99; RESP 14–21; TEMP 36.6–37.4; O2SAT 92–97; BMI 34.5
[2025-08-02 00:08] LABS: Alanine Aminotransferase 16 U/L (0-31); Albumin Level 4.3 g/dL (3.5-5.0); Alkaline Phosphatase 53 U/L (39-117); Anion Gap 13 (12-20); Aspartate Amino Transferase 24 U/L (5-31); Blood Urea Nitrogen 12 mg/dL (9-16); Calcium 9.3 mg/dL (8.4-10.2); Carbon Dioxide 22 mmol/L (22-29); Chloride 107 mmol/L (96-108); Creatinine Clr Calc Pharmacy 79.2; Estimated Glomerular Filt Rate > 60; Lipase 37 U/L (8-78); Potassium 3.7 mmol/L (3.3-5.1); Sodium 138 mmol/L (135-145); Total Protein 6.8 g/dL (6.5-8.0)
[2025-08-02] MEDS: iohexoL 350 MG/ML 100 ML INFUS..BTL 85 ML IV (00:56)
[2025-08-02 01:24] LABS: Appearance Urine Clear; Glucose Urine UA Negative (Negative); PH 6.0 (5.0-9.0); Specific Gravity - Urine >= 1.030 (1.005-1.025); UMIC TRIGGER UACC YES
[2025-08-02] MEDS: cefoTEtan disodium 2 GM VIAL IVPUSH (03:08)
[2025-08-02] MEDS: Dextrose 5 % and Lactated Ring 1,000 ML 125 ML IVCONT ×2 (06:26→11:08)
--- NOTE | 2025-08-02 08:54 | PHA.MEDREC ---
Pharmacy Consult ? Medication Reconciliation Pharmacy has completed the medication reconciliation. Spoke to patient who knew medications. Also takes a vit d, coq10 and d3 but doesnt know doses.
--- NOTE | 2025-08-02 09:00 | PM.HPGS ---
History of Present Illness History of Present Illness Date of Service: 08/03/25 Chief complaint: acute cholecystitis, cholelithiasis Narrative: Amanda Layton is a 60 year old female anxiety and depression, admitted last night from the ER because of abdominal pain. She says this has been going on for about 2-3 days prior to admission. She describes this is mostly on the epigastric area in the right upper quadrant. She states that times this seems to radiate to the back She says that the pain is constant. She describes some nausea and vomiting prior to coming to the ER. She says that she continues to have pain this morning. She denies any fever at home. She has had no abdominal surgeries in the past. Review of Systems Constitutional: Constitutional: Denies chills and Denies fever(s) Cardiovascular: Cardiovascular: Denies chest pain, Denies dyspnea and Denies dyspnea on exertion Respiratory: Respiratory: Denies cough, Denies dyspnea and Denies dyspnea on exertion Gastrointestinal: Gastrointestinal: Denies hematochezia and Denies change in bowel habits Genitourinary: Genitourinary: Denies hematuria Musculoskeletal: Musculoskeletal: Denies back pain and Denies limited range of motion Neurologic: Denies focal weakness and Denies convulsions Psychiatric: Psychiatric: Denies depression and Denies mood swings PMFSH Past Medical History Medical History (Updated 08/02/25 @ 09:02 by Thomas Bell MD) Anxiety and depression Social History Social History Household Members: None Housing: Apartment Do you presently have visiting nurse or other home services: No Alcohol intake: never Patient Tobacco Use Status: Never used Tobacco Smoked in Last 30 Days: No Use of substances other than those prescribed or required for medical reasons: No Currently Displaying Signs/Symptoms of Drug Intoxication Withdrawal: No Advance Directives: No Advance Directives Information Provided: Yes Nutrition Risks: No Nutritional Risk Patient : No : No Poor oral hygiene: No Meds Allergies Allergy/AdvReac Type Severity Reaction Status Date / Time No Known Allergies Allergy Verified 08/01/25 23:17 Active Medications: Current Medications Calcium Carbonate (Calcium Carbonate 750 Mg Tab.Chew) 750 mg PO Q4H PRN PRN Reason: Heartburn Hydromorphone HCl (Hydromorphone Hcl 0.5 Mg/0.5 Ml Syringe) 0.5 mg IVPUSH Q3H PRN; Protocol PRN Reason: Pain, Severe (Pain Scale 7-10) Acetaminophen (Ofirmev) 1,000 mg in 100 mls @ 400 mls/hr IV Q6H PRN PRN Reason: Pain, Mild (Pain Scale 1-3) Last Infusion: 08/02/25 08:21 Dose: Infused Dextrose/Lactated Ringer's (D5lr) 1,000 mls @ 125 mls/hr IVCONT .Q8H [facility] Last Admin: 08/02/25 06:26 Dose: 125 mls/hr Piperacillin Sod/Tazobactam (Sod 3.375 gm/ Sodium Chloride) 50 mls @ 100 mls/hr IV Q6H [facility] Last Infusion: 08/02/25 06:51 Dose: Infused Magnesium Hydroxide (Milk Of Magnesia 30 Ml Oral.Susp) 30 ml PO DAILY PRN PRN Reason: Constipation Melatonin (Melatonin 3 Mg Tablet) 6 mg PO BEDTIME PRN PRN Reason: Insomnia Ondansetron HCl (Ondansetron Hcl 4 Mg/2 Ml Vial) 4 mg IVPUSH QID PRN PRN Reason: Nausea Sodium Chloride (0.9 % Sodium Chloride Flush 3 Ml Syringe) 3 ml IVFLUSH QSHIFT [facility] Last Admin: 08/02/25 07:21 Dose: Not Given Home Medications ?Medication ?Instructions ?Recorded ?Confirmed ?Last Taken ?Type sertraline 100 mg tablet 150 mg PO DAILY 08/02/25 08/02/25 08/01/25 History Physical Exam Vital Signs: Vital Signs: Last Vital Signs Temp 98.4 F 08/02/25 00:06 Pulse 78 08/01/25 23:17 Resp 16 08/01/25 23:17 BP 122/72 08/01/25 23:17 Pulse Ox 97 08/01/25 23:17 O2 Del Method Room Air 08/01/25 23:17 BMI result Body Mass Index 29.2 Const: General: comfortable and no acute distress Orientation/consciousness: patient oriented x3 Neck: Neck: Yes no lymphadenopathy Resp: Auscultation: clear to auscultation bilaterally Cardio: Rhythm: regular rhythm GI: Other: Tender on the right upper quadrant and epigastric areas Palpation (GI): Soft to palpation, Tenderness to palpation present (GI) and no guarding Neuro: General: patient oriented x3 Results Results Labs: Short CBC 08/01/25 Range/Units 23:41 WBC 11.9 H (4.8-10.8) X10*3/uL Hgb 12.7 (12.0-16.0) g/dl Hct 36.7 L (37.0-47.0) % Plt Count 302 (160-400) X10*3/uL BMP 08/01/25 23:41 Sodium 138 Potassium 3.7 Chloride 107 Carbon Dioxide 22 BUN 12 Creatinine 0.74 Calcium 9.3 Liver Function 08/01/25 Range/Units 23:41 Total Bilirubin 0.4 (0.0-1.0) mg/dL AST 24 (5-31) U/L ALT 16 (0-31) U/L Alkaline Phosphatase 53 (39-117) U/L Albumin 4.3 (3.5-5.0) g/dL Urine 08/02/25 Range/Units 01:16 Urine Color Yellow Urine Appearance Clear Urine pH 6.0 (5.0-9.0) Ur Specific [place] >= 1.030 H (1.005-1.025) Urine Protein 30 (1+) H (Neg-Trace) mg/dL Urine Glucose (UA) Negative (Negative) mg/dL Abdomen CT scan report/results: report reviewed and image reviewed CT scan - pelvis: report reviewed and image reviewed Additional studies: CT abdomen and pelvis with contrast Comparison: None provided Findings: Mild bibasilar atelectasis/pneumonitis of the imaged lung bases. Asymmetry of the imaged glandular tissue in the [id number]. Small pericardial effusion with mild/borderline cardiomegaly. Mild periportal edema. Imaged CBD measures 7 mm diameter. Mild pericholecystic fluid is nonspecific. Distention of the gallbladder noted. Adrenal glands are normal. Pancreas partly obscured and otherwise unremarkable. The spleen is nonenlarged. Apparent filtered contrast could obscure medullary calcinosis and small stones. No hydronephrosis. Small retroperitoneal and mesenteric lymph nodes are nonspecific and likely reactive. No small bowel obstruction. Severe stool burden is noted, including in the cecum. The appendix is not definitively seen. Question mild wall thickening of the terminal ileum as can be associated with enteritis and inflammatory bowel disease. Metal artifacts noted including from umbilicus piercing. Mild free fluid in the pelvis nonspecific and may be reactive. Uterus is anteverted. No adnexal soft tissue mass by CT. Mild wall thickening of the urinary bladder is noted. Small bilateral fat containing inguinal hernias. Degenerative changes include the hips, left worse than right. Degenerative disc changes and facet arthropathy are multifocal. 7 mm retrolisthesis of the L1-L2, with mild-moderate spinal stenosis by CT. 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 IMPRESSION: 1. Pericholecystic fluid about the distended gallbladder. This is nonspecific by CT and can be seen with cholecystitis. 2. Mild periportal edema. 3. Severe stool burden. No small bowel obstruction. This document has been electronically signed by: Chip Phillips MD on 08/02/2025 01:42:07 Assessment and Plan (1) Acute cholecystitis: Status: Acute 60 year female with right upper quadrant and epigastric pain and tenderness. She had imaging studies in the ER showing being suggestive of acute cholecystitis. There is note of gallstones with some mild pericholecystic fluid. The gallbladder does appear distended . Her LFTs are normal. I therefore explained to her the option of proceeding with cholecystectomy. I explained to her the technique of laparoscopic cholecystectomy and open cholecystectomy. I reviewed with her the risks including but not limited to bleeding, infections, injury to other organs including bowel, liver and the bile duct, bile leak, retained stones, as well as the benefits and alternatives. I explained to her what to expect postoperatively She says she understands and wants to proceed. She has been added to the schedule for today I have discussed the above with her daughter as well. I have reviewed the images with the radiologist Dr. Cavanaugh. Quality Stroke Does the patient have a stroke diagnosis?: No VTE Prior VTE?: No VTE Risk Level:: Surgical - moderate VTE Device Contraindication: N/A - Device Ordered VTE Drug Contraindication: Treatment Not Indicated Procedures Date of Service Date of Service: 08/03/25
--- NOTE | 2025-08-02 10:56 | PC.NURSE ---
Patient c/o ABD pain Administered dilaudid per NOV, medication effective BP's soft Notified Dr. Bell, no new orders
--- NOTE | 2025-08-02 12:30 | HO.ANESPROP2 ---
HPI - Anesthesia Eval Consult details Narrative: 60 yo F presenting for lap aga PMFSH Active Problems Active Problems: All Active Problems Anxiety and depression (Acute) Abdominal pain (Acute) Acute cholecystitis (Acute) Past Medical History Medical History (Updated 08/02/25 @ 09:02 by Thomas Bell MD) Anxiety and depression Family History Family history of problems with anesthesia: No Surgical History History of Problems with Anesthesia: No Social History Social History Household Members: None Housing: Apartment Do you presently have visiting nurse or other home services: No Alcohol intake: never Patient Tobacco Use Status: Never used Tobacco Smoked in Last 30 Days: No Use of substances other than those prescribed or required for medical reasons: No Advance Directives: No Advance Directives Information Provided: Yes Nutrition Risks: No Nutritional Risk Patient : No : No Poor oral hygiene: No Meds Allergies Allergy/AdvReac Type Severity Reaction Status Date / Time No Known Allergies Allergy Verified 08/01/25 23:17 Active Medications: Current Medications Calcium Carbonate (Calcium Carbonate 750 Mg Tab.Chew) 750 mg PO Q4H PRN PRN Reason: Heartburn Hydromorphone HCl (Hydromorphone Hcl 0.5 Mg/0.5 Ml Syringe) 0.5 mg IVPUSH Q3H PRN; Protocol PRN Reason: Pain, Severe (Pain Scale 7-10) Last Admin: 08/02/25 10:10 Dose: 0.5 mg Acetaminophen (Ofirmev) 1,000 mg in 100 mls @ 400 mls/hr IV Q6H PRN PRN Reason: Pain, Mild (Pain Scale 1-3) Last Infusion: 08/02/25 08:21 Dose: Infused Dextrose/Lactated Ringer's (D5lr) 1,000 mls @ 125 mls/hr IVCONT .Q8H [facility] Last Admin: 08/02/25 11:08 Dose: 125 mls/hr Piperacillin Sod/Tazobactam (Sod 3.375 gm/ Sodium Chloride) 50 mls @ 100 mls/hr IV Q6H [facility] Last Infusion: 08/02/25 11:03 Dose: Infused Magnesium Hydroxide (Milk Of Magnesia 30 Ml Oral.Susp) 30 ml PO DAILY PRN PRN Reason: Constipation Melatonin (Melatonin 3 Mg Tablet) 6 mg PO BEDTIME PRN PRN Reason: Insomnia Ondansetron HCl (Ondansetron Hcl 4 Mg/2 Ml Vial) 4 mg IVPUSH QID PRN PRN Reason: Nausea Last Admin: 08/02/25 11:36 Dose: 4 mg Sodium Chloride (0.9 % Sodium Chloride Flush 3 Ml Syringe) 3 ml IVFLUSH QSHIFT [facility] Last Admin: 08/02/25 07:21 Dose: Not Given Home Medications ?Medication ?Instructions ?Recorded ?Confirmed ?Last Taken ?Type sertraline 100 mg tablet 150 mg PO DAILY 08/02/25 08/02/25 08/01/25 History Exam Exam Date and Time: 08/02/25 1230 Height,Weight and Vital Signs: Height 5 ft 4 in Weight 91.2 kg Last Vital Signs Temp 97.8 F 08/02/25 11:53 Pulse 58 08/02/25 11:53 Resp 16 08/02/25 11:53 BP 88/54 L 08/02/25 11:49 Pulse Ox 92 08/02/25 11:53 O2 Del Method Room Air 08/02/25 11:53 Pertinent Lab Results Pertinent Lab Results: Laboratory Tests 08/01/25 08/02/25 08/02/25 23:41 01:16 02:28 WBC 11.9 H RBC 3.92 L Hgb 12.7 Hct 36.7 L MCV 93.6 MCH 32.4 MCHC 34.6 RDW 12.0 Plt Count 302 MPV 9.9 Immature Gran % (Auto) 0.3 Neut % (Auto) 84.3 H Lymph % (Auto) 8.3 L Sunflower % (Auto) 6.1 Eos % (Auto) 0.7 Baso % (Auto) 0.3 Lymph # (Auto) 1.0 L Sunflower # (Auto) 0.7 Eos # (Auto) 0.1 Baso # (Auto) 0.0 Abs Immat Gran (auto) 0.03 Absolute Neuts (auto) 10.0 H Absolute Nucleated RBC 0.000 Nucleated RBC % (auto) 0.0 Sodium 138 Potassium 3.7 Chloride 107 Carbon Dioxide 22 Anion Gap 13 BUN 12 Creatinine 0.74 Estim Creat Clear Calc 79.2 Estimated GFR > 60 Random Glucose 174 H Lactic Acid 1.1 Calcium 9.3 Total Bilirubin 0.4 AST 24 ALT 16 Alkaline Phosphatase 53 Total Protein 6.8 Albumin 4.3 Lipase 37 Urine Color Yellow Urine Appearance Clear Urine pH 6.0 Ur Specific [place] >= 1.030 H Urine Protein 30 (1+) H Urine Glucose (UA) Negative Urine Ketones Negative Urine Blood Small (1+) H Urine Nitrite Negative Ur Leukocyte Esterase Negative Urine RBC 6-10 H Urine WBC 0-5 Ur Squamous Epith Cells 0-2 Urine Bacteria None Seen Hyaline Casts 0-2 Airway Mallampati Class: II TM Dist: <=3cm Neck ROM: Full Loose/Missing/Broken Teeth: Yes (multiple missing and broken teeth) Heart: S1S2 Lungs: Diminished bilaterally Assessment and Plan Assessment Anesthesia Assessment: Anesthesia Plan Discussed and Chart Reviewed Final Anesthetic Review Family History of Problems with Anesthesia: No History of Problems with Anesthesia: No NPO: Yes ASA Class: II Final Preanesthetic Review: No Changes in Pt Med Stat, Meds/Allgs Chart Reviewed, Consent Obtained/Reviewed and Anes Risks/Benef Reviewed Patient Risk: Low Procedure Risk: Intermediate Anesthetic Plan Anesthetic Plan: GA and Agree w/ Assess. and Plan Disposition: Standard PACU
--- NOTE | 2025-08-02 14:03 | W.PM.OPN ---
Operative Note Operative Note Date of Service: 08/02/25 Narrative: Preop diagnosis: Acute cholecystitis Postop diagnosis: Acute gangrenous cholecystitis Procedure: Laparoscopic cholecystectomy Surgeon: Thomas Bell MD junior administrative assistant: LATASHA Bruce The patient is a 60 year old female admitted because of right upper quadrant and epigastric pain past 3 days along with imaging studies consistent with acute cholecystitis. She understood the technique of the planned procedure and she was aware of the risks, benefits, and alternatives. She was brought to the operating room and placed supine under general anesthesia via endotracheal tube. The abdomen was prepped and draped in the usual sterile fashion. A surgical time-out was done. The patient received Cefotan 2 g IV preoperatively. I made a short incision on the supraumbilical area using blade 15. This was carried down through the full-thickness of the skin and thick subcutaneous fat to the fascia. The fascia was incised. The peritoneum was entered. Through this incision a Bruner port was introduced pneumoperitoneum was introduced to a pressure of 15 mm Hg. From here on the rest of procedure was done under vision with the 10 mm flat laparoscope. With laparoscopic visualization, I inserted a 5/12 mm port in the epigastric area. Two 5 mm ports introduced a small incision below the subcostal margin along the anterior axillary line and the midclavicular line. Graspers were placed through these working ports. The patient was placed in a head up and [id number] position The gallbladder was seen. This was noted to be markedly distended, severely inflamed and with areas of obvious gangrene. We had to decompress the gallbladder with an aspirating needle order for us to be able to apply the graspers. After decompression, I was able to apply a grasper at the fundus to retract this cephalad. I proceeded to apply another grasper towards the pouch of the gallbladder to retract this laterally. At this point the gallbladder was being retracted in a cephalad and lateral fashion to put the area of the cystic duct on stretch. I carefully dissected the neck of the gallbladder using the [place] dissector to tease off the peritoneal lining surrounding the neck. The patient had severe induration of the neck of the gallbladder he had the entire gallbladder itself was very edematous, and inflamed with gangrene as well on areas around the fundus.. With continued dissection using the [place] dissector, I was eventually able to visualize the cystic duct and its confluence with the neck of the gallbladder. This area of the cystic duct was also severely indurated. The cystic artery was also seen running alongside this. We had achieved a critical view of the hepatocystic triangle at this point. I therefore applied clips on the cystic duct with 2 clips being applied distally. The cystic duct was transected between clips with Endo scissors. I applied clips on the cystic artery with 2 clips applied distally. The cystic artery was transected with the clips with Endo scissors as well. With traction on the gallbladder away from the liver bed I proceeded to then carefully divide the hilum with the electrocautery spatula. The hilum was also severely indurated with inflamed areolar tissue. I had to proceed slowly with a mm by mm dissection. I used the hook electrocautery to carefully divide the thickened, very erythematous and edematous peritoneum of the gallbladder and create a plane of dissection between the gallbladder with the liver bed. Slowly developed this plane of dissection. However, the gallbladder was severely inflamed and we had poor planes so we had encountered a lot of bleeding from the bed itself while the gallbladder from the liver bed. We had to periodically cauterized the liver bed and apply Surgicel. Tears in the gallbladder wall were seen during the dissection in view of retraction with a very friable and inflamed gallbladder wall. We had to retrieved some stones this has filled out through the stairs. We continued to do careful and slow dissection of the gallbladder wall from the liver bed using the hook electrocautery anterior the entire gallbladder was completely . The gallbladder was retrieved through an endobag through the umbilical incision. I reinserted all ports and re-insufflated. I had to do cauterization of some oozing areas in the liver bed. I observed all 4 quadrants and there was no other pathology seen. I removed the Surgicel. We copiously irrigated and suctioned out the irrigant fluid. There appeared to be good hemostasis in the liver bed. There was no evidence of any bowel injury or bile leak. I irrigated and suctioned gone irrigant fluid. I positioned a 10. REBECCA drain in the gallbladder fossa this was brought out through the lateral most port site. This was secured to the skin with nylon 3-0 anchoring sutures. Once hemostasis was confirmed, we desufflated through the port sites. The ports were removed, with the umbilical port removed last. The fascia of the umbilical incision was closed with a [id number] Polysorb 0 stitch. Skin closure was achieved on all incisions using Polysorb 4-0 subcuticular running sutures. All incisions were infiltrated with Marcaine 0.5% for postop analgesia. Steri-Strips and dressings were applied and the procedure was completed. The patient tolerated the procedure well. There were no immediate complications. Initial and final counts of sponges and instruments were correct. Estimated blood loss was about 100 cc. The patient was extubated without difficulty and transferred to the recovery room with stable vital signs.
[2025-08-02] MEDS: 0.9 % Sodium Chloride Flush 3 ML SYRINGE IVFLUSH (15:00)
--- NOTE | 2025-08-02 15:11 | PM.EVENT ---
Event Note Date of Service: 08/02/25 Event Note: Seen postop Awake, appears to have adequate pain control Stable vital signs Abdomen is soft REBECCA drain in place - dark old blood, minimal Pain management Clear liquids, advance slowly as tolerated Daughter updated by phone Time Spent With Patient Time: Total time managing care of this patient today ____ minutes.
[2025-08-03 01:28] VITALS: BP 110/60
[2025-08-03] MEDS: Dextrose 5 % and Lactated Ring 1,000 ML 125 ML IVCONT ×3 (02:39→21:41)
[2025-08-03 03:22] VITALS: BP 98/58; PULSE 64; RESP 18; TEMP 36.8; O2SAT 93
[2025-08-03 07:30] VITALS: BP 102/56; PULSE 60; RESP 18; TEMP 37.3; O2SAT 94
[2025-08-03] MEDS: 0.9 % Sodium Chloride Flush 3 ML SYRINGE IVFLUSH ×2 (07:41→21:57)
--- NOTE | 2025-08-03 10:04 | PM.PNGS ---
Subjective Subjective Date of Service: 08/03/25 Interval history: Complains of incisional pain but no events overnight No fever Has had stable vital sign Physical Exam Vital Signs: Vital Signs: Last Vital Signs Temp 99.2 F 08/03/25 07:30 Pulse 60 08/03/25 07:30 Resp 18 08/03/25 07:30 BP 102/56 L 08/03/25 07:30 Pulse Ox 94 08/03/25 07:30 O2 Del Method Room Air 08/03/25 07:30 O2 Flow Rate 2 08/02/25 14:42 BMI result Body Mass Index 34.5 Const: Other: Admits to pain on incisions General: comfortable and no acute distress Resp: Effort & Inspection: normal respiratory effort Cardio: Rate: regular rate GI: Other: REBECCA drain scanty old blood Palpation (GI): Soft to palpation, Tenderness to palpation present (GI) (Tender along incisions) and no guarding Objective Data Active Medications Calcium Carbonate (Calcium Carbonate 750 Mg Tab.Chew) 750 mg PO Q4H PRN PRN Reason: Heartburn Hydromorphone HCl (Hydromorphone Hcl 0.5 Mg/0.5 Ml Syringe) 0.5 mg IVPUSH Q3H PRN; Protocol PRN Reason: Pain, Severe (Pain Scale 7-10) Last Admin: 08/03/25 07:39 Dose: 0.5 mg Documented By: ADALBERTO Dextrose/Lactated Ringer's (D5lr) 1,000 mls @ 125 mls/hr IVCONT .Q8H [facility] Last Admin: 08/03/25 03:16 Dose: Not Given Documented By: BASIA Non-Admin Reason: IV Running Piperacillin Sod/Tazobactam (Sod 3.375 gm/ Sodium Chloride) 50 mls @ 100 mls/hr IV Q6H [facility] Last Admin: 08/03/25 09:56 Dose: 100 mls/hr Documented By: NAY Acetaminophen (Ofirmev) 1,000 mg in 100 mls @ 400 mls/hr IV Q6H [facility] Last Infusion: 08/03/25 09:12 Dose: Infused Documented By: ADALBERTO Magnesium Hydroxide (Milk Of Magnesia 30 Ml Oral.Susp) 30 ml PO DAILY PRN PRN Reason: Constipation Melatonin (Melatonin 3 Mg Tablet) 6 mg PO BEDTIME PRN PRN Reason: Insomnia Naloxone HCl (Naloxone Hcl 0.4 Mg/Ml Vial) 0.04 mg IVPUSH Q5M PRN PRN Reason: Excessive sedation or RR < 8 Ondansetron HCl (Ondansetron Hcl 4 Mg/2 Ml Vial) 4 mg IVPUSH Q6H PRN PRN Reason: Nausea Last Admin: 08/03/25 01:29 Dose: 4 mg Documented By: BASIA Comments: [employer] approved to administer now Sodium Chloride (0.9 % Sodium Chloride Flush 3 Ml Syringe) 3 ml IVFLUSH [facility] Last Admin: 08/03/25 07:41 Dose: 3 ml Documented By: BEIT Labs 08/01/25 23:41 08/01/25 23:41 Microbiology Microbiology Results: Microbiology 08/02/25 02:28 Blood Culture - Preliminary Blood - Venous No growth after 24 hours. 08/02/25 02:28 Blood Culture - Preliminary Blood - Venous No growth after 24 hours. Procedures Date of Service Date of Service: 08/03/25 Progress Note: A&P Assessment and plan (1) Acute cholecystitis: Status: Acute Assessment and Plan: Status post laparoscopic cholecystectomy Had gangrenous cholecystitis REBECCA drain scanty output Soft and benign She complains of incisional pain Looks well overall Plan to keep in the hospital for pain control today and possible DC home tomorrow Encouraged ambulation Incentive spirometry Time Spent With Patient Time: Total time managing care of this patient today ____ minutes. Quality Stroke Does the patient have a stroke diagnosis?: No VTE Prior VTE?: No VTE Risk Level:: Surgical - moderate VTE Device Contraindication: N/A - Device Ordered VTE Drug Contraindication: Treatment Not Indicated
--- NOTE | 2025-08-03 13:28 | PM.EVENT ---
Event Note Date of Service: 08/03/25 Event Note: Seen on early afternoon rounds Says she has incisional pain Was nauseous after morphine earlier Not really having a lot of oral intake yet Abdomen is soft REBECCA drain serosanguineous Clinically looks stable Pain management Encouraged to start getting out of bed Family at bedside, updated Time Spent With Patient Time: Total time managing care of this patient today ____ minutes.
[2025-08-03 15:15] VITALS: BP 114/59; PULSE 66; RESP 18; TEMP 37.4; O2SAT 94
--- NOTE | 2025-08-03 16:28 | MHC.CM.PN ---
PT REPORTS SHE LIVES ALONE AND IS INDEPENDENT WITH CARE SHE HAS NO DME OR SERVICES HCP COMPLETED TODAY NAMING HER DAUGHTER MELITON PCP IN [place], [place] DCP: HOME VIA PRIVATE TRANSPROT
[2025-08-03 19:30] VITALS: BP 125/63; PULSE 73; RESP 18; TEMP 37.2; O2SAT 93
[2025-08-03 20:22] VITALS: RESP 18
[2025-08-04 03:11] VITALS: RESP 18
[2025-08-04 03:26] VITALS: BP 109/69; PULSE 63; RESP 17; TEMP 36.7; O2SAT 98
--- NOTE | 2025-08-04 04:32 | PM.EVENT ---
Event Note Date of Service: 08/04/25 Event Note: Nursing notified this provider overnight, pt having DIGGS missing caffiene, declined coffee, and requesting one dose of fioricet. Unable to dose at time of request due to amount of IV tylenol on board. No NSAIDS considered as this is a surgical case. Changed IV tylenol to Q8H and pt can have fioricet at 0630. Time Spent With Patient Time: Total time managing care of this patient today ____ minutes.
[2025-08-04] MEDS: Butalb/Acetamin/Caff 50/325/40 TABLET 1 TAB PO ×2 (06:30→19:37)
[2025-08-04] MEDS: 0.9 % Sodium Chloride Flush 3 ML SYRINGE IVFLUSH ×2 (07:31→14:47)
[2025-08-04 07:57] VITALS: BP 105/66; PULSE 58; RESP 18; TEMP 36.2; O2SAT 93
--- NOTE | 2025-08-04 08:58 | HO.POSTANES ---
Post Anesthesia Evaluation Post Anesthesia Evaluation Date of Service: 08/04/25 Vital Signs: Vital Signs Temp Pulse Resp BP Pulse Ox O2 Del Method O2 Flow Rate 08/04/25 07:57 97.2 F 58 18 105/66 93 Room Air 08/04/25 03:26 98.1 F 63 17 109/69 98 Nasal Cannula 2 08/04/25 03:11 18 Anesthesia: General Endotracheal-GETA Mental Status: Awake Pain Control: Satisfactory Nausea/Vomiting: None Hydration: Adequate Anesthesia-Related Issues: No Anes. Related Issues
[2025-08-04 09:16] LABS: Hematocrit 32.6 % (37.0-47.0); Hemoglobin 10.5 g/dl (12.0-16.0); Mean Corpuscular HGB Conc 32.2 g/dl (31.0-35.0); Mean Corpuscular Hemoglobin 32.4 pg (27.0-33.0); Mean Corpuscular Volume 100.6 fL (80.0-98.0); NRBC Abs Auto 0.000 X10*3/uL (0.0-0.012); NRBC Pct Auto 0.0 /100WBC (0.0-0.2); Platelet Count 269 X10*3/uL (160-400); Red Blood Count 3.24 X10*6/uL (4.20-5.50); White Blood Count 8.1 X10*3/uL (4.8-10.8)
--- NOTE | 2025-08-04 09:46 | P.PNGS_ITS ---
Subjective Subjective Date of Service: 08/04/25 Interval history: Feels much better this morning Eating better Says her appetite is coming back Pain much better controlled Physical Exam 2 Vital Signs: Vital Signs: Last Vital Signs Temp 97.2 F 08/04/25 07:57 Pulse 58 08/04/25 07:57 Resp 18 08/04/25 07:57 BP 105/66 08/04/25 07:57 Pulse Ox 93 08/04/25 07:57 O2 Del Method Room Air 08/04/25 07:57 O2 Flow Rate 2 08/04/25 03:26 BMI result Body Mass Index 34.5 Const: General: comfortable and no acute distress Resp: Effort & Inspection: normal respiratory effort Cardio: Rate: regular rate GI: Other: Dressings dry, REBECCA drain scanty thin serosanguineous Palpation (GI): Soft to palpation, not firm and no guarding Objective Data Active Medications Calcium Carbonate (Calcium Carbonate 750 Mg Tab.Chew) 750 mg PO Q4H PRN PRN Reason: Heartburn Hydromorphone HCl (Hydromorphone Hcl 0.5 Mg/0.5 Ml Syringe) 0.5 mg IVPUSH Q3H PRN; Protocol PRN Reason: Pain, Severe (Pain Scale 7-10) Last Admin: 08/03/25 16:49 Dose: 0.5 mg Documented By: ADALBERTO Piperacillin Sod/Tazobactam (Sod 3.375 gm/ Sodium Chloride) 50 mls @ 100 mls/hr IV Q6H [facility] Last Infusion: 08/04/25 05:02 Dose: Infused Documented By: DAVIDA Acetaminophen (Ofirmev) 1,000 mg in 100 mls @ 400 mls/hr IV Q8H [facility] Magnesium Hydroxide (Milk Of Magnesia 30 Ml Oral.Susp) 30 ml PO DAILY PRN PRN Reason: Constipation Melatonin (Melatonin 3 Mg Tablet) 6 mg PO BEDTIME PRN PRN Reason: Insomnia Naloxone HCl (Naloxone Hcl 0.4 Mg/Ml Vial) 0.04 mg IVPUSH Q5M PRN PRN Reason: Excessive sedation or RR < 8 Ondansetron HCl (Ondansetron Hcl 4 Mg/2 Ml Vial) 4 mg IVPUSH Q6H PRN PRN Reason: Nausea Last Admin: 08/03/25 12:17 Dose: 4 mg Documented By: ADALBERTO Sodium Chloride (0.9 % Sodium Chloride Flush 3 Ml Syringe) 3 ml IVFLUSH QSHIFT [facility] Last Admin: 08/04/25 07:31 Dose: 3 ml Documented By: ADALBERTO Labs 08/04/25 09:07 08/04/25 09:07 Labs: Laboratory Results - last 24 hr 08/04/25 09:07 MCV 100.6 H D MCH 32.4 MCHC 32.2 RDW 12.3 Plt Count 269 MPV 9.8 Absolute Nucleated RBC 0.000 Nucleated RBC % (auto) 0.0 Microbiology Microbiology Results: Microbiology 08/02/25 02:28 Blood Culture - Preliminary Blood - Venous No growth after 48 hours. 08/02/25 02:28 Blood Culture - Preliminary Blood - Venous No growth after 48 hours. Procedures Date of Service Date of Service: 08/04/25 Progress Note: A&P Assessment and plan (1) Acute cholecystitis: Status: Acute Assessment and Plan: Status post lap aga, with note of gangrenous cholecystitis REBECCA drain thin and serosanguineous She looks well clinically Abdomen is soft and benign Possible DC home later on today she is comfortable enough - she says she lives alone and is anxious about this Labs including LFTs okay Likely to go home with REBECCA drain - I can remove this in the office later this week Time Spent With Patient Time: Total time managing care of this patient today ____ minutes. Quality Stroke Does the patient have a stroke diagnosis?: No VTE Prior VTE?: No VTE Risk Level:: Surgical - moderate VTE Device Contraindication: N/A - Device Ordered VTE Drug Contraindication: Treatment Not Indicated
[2025-08-04 09:47] LABS: Alanine Aminotransferase 78 U/L (0-31); Albumin Level 3.6 g/dL (3.5-5.0); Alkaline Phosphatase 71 U/L (39-117); Anion Gap 11 (12-20); Aspartate Amino Transferase 69 U/L (5-31); Blood Urea Nitrogen 9 mg/dL (9-16); Calcium 9.1 mg/dL (8.4-10.2); Carbon Dioxide 27 mmol/L (22-29); Chloride 107 mmol/L (96-108); Creatinine Clr Calc Pharmacy 78.7; Estimated Glomerular Filt Rate > 60; Potassium 4.6 mmol/L (3.3-5.1); Sodium 140 mmol/L (135-145); Total Protein 6.0 g/dL (6.5-8.0)
--- NOTE | 2025-08-04 12:40 | PM.EVENT ---
Event Note Date of Service: 08/04/25 Event Note: Seen on early afternoon rounds Says she does not feel ready to be discharged today Wants to stay another day Very anxious about pain and self-care at home Looks well overall Possibly DC REBECCA drain tomorrow before discharge Encouraged ambulation Time Spent With Patient Time: Total time managing care of this patient today ____ minutes.
[2025-08-04 15:25] VITALS: BP 115/57; PULSE 63; RESP 18; TEMP 36.4; O2SAT 92
[2025-08-04] MEDS: oxyCODONE HCl Immed Release 5 MG TABLET PO (15:28)
[2025-08-04 20:00] VITALS: BP 125/70; PULSE 62; RESP 18; TEMP 36.2; O2SAT 92
[2025-08-05] MEDS: 0.9 % Sodium Chloride Flush 3 ML SYRINGE IVFLUSH ×2 (00:30→09:42)
[2025-08-05 04:00] VITALS: BP 131/78; PULSE 81; RESP 18; TEMP 36.4; O2SAT 92
--- NOTE | 2025-08-05 07:36 | P.PNGS_ITS ---
Subjective Subjective Date of Service: 08/05/25 <Neftaly Bruce PA-C - Last Filed: 08/05/25 07:45> 08/05/25 <Thomas Bell MD - Last Filed: 08/05/25 08:34> Interval history: doing okay, some diffuciltu with deep inspiration. has been trying to use spirometry at least a few times per hour. reports low appetite, but tolerating reular diet. ambulating well. Mild abdominal pain in the RUQ <Neftaly Bruce PA-C - Last Filed: 08/05/25 07:45> Physical Exam 2 Vital Signs: Vital Signs: Last Vital Signs Temp 97.5 F 08/05/25 04:00 Pulse 81 08/05/25 04:00 Resp 18 08/05/25 04:00 BP 131/78 08/05/25 04:00 Pulse Ox 92 08/05/25 04:00 O2 Del Method Room Air 08/05/25 04:00 O2 Flow Rate 2 08/04/25 03:26 BMI result Body Mass Index 34.5 <Neftaly Bruce PA-C - Last Filed: 08/05/25 07:45> Const: General: comfortable and no acute distress <Neftaly Bruce PA-C - Last Filed: 08/05/25 07:45> Orientation/consciousness: patient oriented x3 <KATIA Tobar Last Filed: 08/05/25 07:45> Resp: Effort & Inspection: normal respiratory effort and able to speak in complete sentences <Neftaly Bruce PA-C - Last Filed: 08/05/25 07:45> GI: Other: REBECCA in place, 600 cc overnight. serosanguenious. incisions clean and dry. <Neftaly Bruce PA-C - Last Filed: 08/05/25 07:45> Inspection: No distended <KATIA Tobar Last Filed: 08/05/25 07:45> Palpation (GI): Soft to palpation, Tenderness to palpation present (GI) in the RUQ and no guarding <KATIA Tobar Last Filed: 08/05/25 07:45> Neuro: General: patient oriented x3 <KATIA Tobar Last Filed: 08/05/25 07:45> Objective Data Active Medications Acetaminophen/Butalbital/Caffeine (Butalb/Acetamin/Caff 50/325/40 Tablet) 1 tab PO Q4H PRN PRN Reason: Headache Last Admin: 08/04/25 19:37 Dose: 1 tab Documented By: SOILA Calcium Carbonate (Calcium Carbonate 750 Mg Tab.Chew) 750 mg PO Q4H PRN PRN Reason: Heartburn Hydromorphone HCl (Hydromorphone Hcl 0.5 Mg/0.5 Ml Syringe) 0.5 mg IVPUSH Q3H PRN; Protocol PRN Reason: Pain, Severe (Pain Scale 7-10) Last Admin: 08/03/25 16:49 Dose: 0.5 mg Documented By: ADALBERTO Piperacillin Sod/Tazobactam (Sod 3.375 gm/ Sodium Chloride) 50 mls @ 100 mls/hr IV Q6H [facility] Last Infusion: 08/05/25 04:26 Dose: Infused Documented By: SOILA Acetaminophen (Ofirmev) 1,000 mg in 100 mls @ 400 mls/hr IV Q8H [facility] Last Infusion: 08/05/25 06:41 Dose: Infused Documented By: SOILA Magnesium Hydroxide (Milk Of Magnesia 30 Ml Oral.Susp) 30 ml PO DAILY PRN PRN Reason: Constipation Melatonin (Melatonin 3 Mg Tablet) 6 mg PO BEDTIME PRN PRN Reason: Insomnia Naloxone HCl (Naloxone Hcl 0.4 Mg/Ml Vial) 0.04 mg IVPUSH Q5M PRN PRN Reason: Excessive sedation or RR < 8 Ondansetron HCl (Ondansetron Hcl 4 Mg/2 Ml Vial) 4 mg IVPUSH Q6H PRN PRN Reason: Nausea Last Admin: 08/03/25 12:17 Dose: 4 mg Documented By: ADALBERTO Oxycodone HCl (Oxycodone Hcl Immed Release 5 Mg Tablet) 5 mg PO Q4H PRN PRN Reason: Pain, Moderate(Pain Scale 4-6) Last Admin: 08/04/25 15:28 Dose: 5 mg Documented By: ADALBERTO Sodium Chloride (0.9 % Sodium Chloride Flush 3 Ml Syringe) 3 ml IVFSH [facility] Last Admin: 08/05/25 00:30 Dose: 3 ml Documented By: SOILA <Neftaly Bruce PA-C - Last Filed: 08/05/25 07:45> Labs CBC & Chem 7: 08/04/25 09:07 08/04/25 09:07 <Neftaly Bruce PA-C - Last Filed: 08/05/25 07:45> Labs: Laboratory Results - last 24 hr 08/04/25 09:07 MCV 100.6 H D MCH 32.4 MCHC 32.2 RDW 12.3 Plt Count 269 MPV 9.8 Absolute Nucleated RBC 0.000 Nucleated RBC % (auto) 0.0 Anion Gap 11 L Estim Creat Clear Calc 78.7 Estimated GFR > 60 Random Glucose 113 Calcium 9.1 Total Bilirubin 0.3 AST 69 H ALT 78 H Alkaline Phosphatase 71 Total Protein 6.0 L Albumin 3.6 <Neftaly Bruce PA-C - Last Filed: 08/05/25 07:45> Microbiology Microbiology Results: Microbiology 08/02/25 02:28 Blood Culture - Preliminary Blood - Venous No growth after 48 hours. 08/02/25 02:28 Blood Culture - Preliminary Blood - Venous No growth after 48 hours. <Neftaly Bruce PA-C - Last Filed: 08/05/25 07:45> Procedures Date of Service Date of Service: 08/05/25 <Neftaly Bruce PA-C - Last Filed: 08/05/25 07:45> 08/05/25 <Thomas Bell MD - Last Filed: 08/05/25 08:34> Progress Note: A&P Assessment and plan (1) S/P laparoscopic cholecystectomy: Status: Acute <Neftaly Bruce PA-C - Last Filed: 08/05/25 07:45> Assessment and Plan: Continues to feel better Pain much improved Says she is ready to be discharged today REBECCA drain with thin serosanguineous output REBECCA drain removed without difficulty Discharge instructions reinforced with the patient We will see in the office next week Seen and examined independently <Thomas Bell MD - Last Filed: 08/05/25 08:34> Assessment and Plan: 60-year-old female POD 3 s/p laparoscopic cholecystectomy. Overall patient doing well. Still complaining of some mild right upper quadrant pain. Some pain with deep inspiration. Has been using spirometry at least a few times an hour. Also ambulating. Tolerating regular diet, low appetite but denies nausea or vomiting. Still has REBECCA in place. Output overnight 60 cc, serosanguineous. Abdomen otherwise soft and benign. Incision sites clean dry intact, no signs of infection currently. She looks well, good pain control, can likely discharge home this afternoon. We will plan to DC drain prior to discharge. Patient agreeable to this plan. Only concern is going up flights of stairs at home, reassured her that there was no restrictions with stairs, as long as she feels comfortable doing these at home. Ambulation spirometry as tolerated Plan to REBECCA removed this afternoon prior to discharge <Neftaly Bruce PA-C - Last Filed: 08/05/25 07:45> Time Spent With Patient Time: Total time managing care of this patient today ____ minutes. <Neftaly Bruce PA-C - Last Filed: 08/05/25 07:45> Quality Stroke Does the patient have a stroke diagnosis?: No <Neftaly Bruce PA-C - Last Filed: 08/05/25 07:45> VTE Prior VTE?: No <Neftaly Bruce PA-C - Last Filed: 08/05/25 07:45> VTE Risk Level:: Surgical - moderate <KATIA Tobar Last Filed: 08/05/25 07:45> VTE Device Contraindication: N/A - Device Ordered <Neftaly Bruce PA-C - Last Filed: 08/05/25 07:45> VTE Drug Contraindication: Treatment Not Indicated <Neftaly Bruce PA-C - Last Filed: 08/05/25 07:45>
[2025-08-05 08:00] VITALS: BP 136/73; PULSE 63; RESP 16; TEMP 36.6; O2SAT 93
--- NOTE | 2025-08-05 08:40 | PC.NURSE ---
d/c REBECCA [id number]
--- NOTE | 2025-08-05 08:45 | MHC.CM.PN ---
Patient medically cleared for dc home self care via private transport.
[2025-08-05] MEDS: oxyCODONE HCl Immed Release 5 MG TABLET PO (08:52)
--- NOTE | 2025-08-05 11:09 | MHC.CM.PN ---
PT CLEARED TO DC HOME TODAY WITH NO SERVICES PT TO ARRANGE TRANSPORT
--- NOTE | 2025-08-05 12:00 | P.DS_ITS ---
DS: Providers Provider Date of Service: 08/05/25 Date of admission: 08/02/25 03:08 Date of discharge: 08/05/25 Primary care physician: Unknown Physician Admitting clinician: Thomas Bell Attending physician on admission: Thomas Bell Attending physician on discharge: Thomas Bell DS: Diagnosis Discharge Diagnosis (1) S/P laparoscopic cholecystectomy: Status: Acute DS: Summary Hospital Course Hospital Course: Admission HPI Amanda Layton is a 60 year old female anxiety and depression, admitted last night from the ER because of abdominal pain. She says this has been going on for about 2-3 days prior to admission. She describes this is mostly on the epigastric area in the right upper quadrant. She states that times this seems to radiate to the back. She says that the pain is constant. She describes some nausea and vomiting prior to coming to the ER. She says that she continues to have pain this morning. She denies any fever at home.She has had no abdominal surgeries in the past. Hospital Course Patient was admitted for management of acute cholecystitis found on imaging in the ED. She was started on IV antibiotics, and was brought to the OR for laparoscopic cholecystectomy. Intraoperatively patient was found to have acute gangrenous cholecystitis. A REBECCA drain was left due to some oozing from the gallbladder fossa. Patient tolerated the procedure well and was transferred back to the [facility] floor. Diet was advance to clear liquid diet that evening, REBECCA output was scant sanguenious. POD 1doing well, some incisional pain, REBECCA scant output, serosanguenious. POD 2 diet has been advanced but she had decreased appetite. Did not feel ready to go home. POD 3 patient doing well, taking more orally. Tolerating light ambulation. Incision sites clean dry, intact. REBECCA output scant serousanguenious. Removed at bedside, tolerated well. Abdomen exam was soft, benign. She felt ready to be discharged. at the time of discharge patient was in stable condition. Status at Discharge Functional status at discharge: independent ambulation Overall status at discharge: patient is progressing back to baseline Time Attestation Discharge Coordination Time (in mins): 30 Quality: Safe Use of Opioids Does Pt have an Active Cancer Diagnosis on the Problem List?: No Quality: Stroke Does the patient have a stroke diagnosis?: No Physical Exam Vital Signs: Vital Signs: Last Vital Signs Temp 97.8 F 08/05/25 08:00 Pulse 63 08/05/25 08:00 Resp 16 08/05/25 08:00 BP 136/73 08/05/25 08:00 Pulse Ox 93 08/05/25 08:00 O2 Del Method Room Air 08/05/25 08:00 O2 Flow Rate 2 08/04/25 03:26 BMI result Body Mass Index 34.5 Const: General: comfortable and no acute distress Orientation/consciousness: patient oriented x3 Resp: Effort & Inspection: normal respiratory effort and able to speak in complete sentences GI: Other: REBECCA in place, 600 cc overnight. serosanguenious. incisions clean and dry. Inspection: No distended Palpation (GI): Soft to palpation, Tenderness to palpation present (GI) in the RUQ and no guarding Neuro: General: patient oriented x3 DS: Data Data Completed and Pending Pending studies at discharge: Pending at discharge 08/02/25 13:33 Surgical [PTH] Routine Labs on day of discharge: Preliminary micro results at discharge 08/02/25 02:28 Blood Culture - Preliminary Blood - Venous No growth after 48 hours. 08/02/25 02:28 Blood Culture - Preliminary Blood - Venous No growth after 48 hours. Discharge Plan Discharge Anticipated Discharge Date/Time: 08/05/25 08:35 Patient Disposition: Home, Self-Care Discharge Diagnosis: Acute cholecystitis with gangrene Referrals: Thomas Bell MD [Physician, General Surgery] - 2 Weeks Physician,Ting J [Primary Care Provider, Medical] - 1 Week Discharge Medications: New oxycodone-acetaminophen 5-325 mg tablet 1 tab PO Q6H PRN (Reason: pain) Qty: 20 0RF Rx Instructions: Partial Fill upon patient request. ibuprofen 600 mg tablet 600 mg PO Q6H PRN (Reason: pain) Qty: 30 0RF Continued sertraline 100 mg tablet 150 mg PO DAILY Discharge Orders: Discharge Order (Routine); Ordered 08/05/25 Ordered By: Thomas Bell Diet: Advance to usual diet Activity on Discharge: No heavy lifting Stand Alone Forms: Patient Portal Discharge page, Work/School Release Print Language: Hungarian Activity Restrictions/Additional Instructions: If the incision area is tender, you may apply an ice pack for short intervals (No more than 20 minutes on, followed by at least 20 minutes off). Do not apply heat. Do not use creams, lotions, or topical antibiotics unless instructed to do so by your surgeon. These can cause infection or allergic reaction. No lifting more than 20 lbs Okay to shower Okay to change dressings with gauze or Band-Aid No strenuous activities Call the office for follow-up this week - with Dr. Bell Call Your Doctor If: -Your temperature exceeds 101.5? F -You experience excessive pain or swelling -You have an unexpected reaction to medication -You have excessive bleeding -You experience continued vomiting/nausea -Your incision begins to separate -Your incision shows signs of infection such as increased redness, swelling, excessive pain, drainage (light blood or clear fluid is normal) or heat Care Plan Goals: Returned to baseline Health Concerns: Postop pain control Plan of Treatment: Oral pain med Drain care Assessment: Doing well overall
[2025-08-05 12:03] VITALS: BP 125/66; PULSE 60; RESP 16; TEMP 37.1; O2SAT 96
== END 2025-08-05 12:29 | disposition home or self-care (01) | DRG 263 ==
LOC: HO.ED 08-02 03:11 → HO.EDOVER 08-02 03:27 → HO.S3 08-02 10:47
PROVIDERS: Physician Assistant Medical; Surgery; Admitting Provider Surgery; Emergency Provider Emergency Medicine; PCP Family Medicine; Visit Provider Surgery
PROC: 0FT44ZZ Resection of Gallbladder, Percutaneous Endoscopic Approach (ICD-10-PCS; CPT 47562; principal; 2025-08-02 12:00)
DX: K81.0 Acute cholecystitis (principal); K82.A1 Gangrene of gallbladder in cholecystitis; Z79.899 Other long term (current) drug therapy
CPT/HCPCS: 36415; 71045; 74177; 76705; 80053; 81001; 83605; 83690; 85025; 85027; 87040; 88304; 99285; J0131; J0525; J1100; J1171; J2003; J2250; J2270; J2371; J2405; J2543; J2704; J2795; J3010; Q9967

== ENCOUNTER → 2025-08-02 00:01 | Outpatient (BNV) | payer BC, SELFPAY | PROVIDERS: Emergency Provider Emergency Medicine; Visit Provider Radiology Neuroradiology | DX: R60.0 Localized edema (principal); K80.20 Calculus of gallbladder without cholecystitis without obstruction; R10.13 Epigastric pain | CPT/HCPCS: 71045; 74177; 76705 ==

== ENCOUNTER → 2025-08-02 03:08 | Outpatient (BNV) | payer BC, SELFPAY | PROVIDERS: Admitting Provider Surgery; Emergency Provider Emergency Medicine; Visit Provider Surgery | DX: K81.0 Acute cholecystitis (principal) | CPT/HCPCS: 47562; 99024; 99499 ==

== ENCOUNTER 2025-08-15 10:53 | Outpatient (AMB) | payer BC, SELFPAY ==
--- NOTE | 2025-08-15 11:17 | MHC.OFFVIS ---
Vital Signs 08/15/25 11:25 Height 5 ft 4 in Weight 169 lb BMI 29.0 BP 121/74 Blood Pressure Location Lt brachial Position Sitting Intake Visit Reasons: s/p Lap Araceli Intake Note: Patient is seen in office for post op assessment post laparoscopic cholecystectomy. Pt c/o: denies any concerns surgery:08/02/25 () Wedding Day Coordinator Required: No Accompanied by: Self / Same As Patient Allergies No Known Allergies Allergy (Verified 08/15/25 11:29) HPI HPI s/p Lap Araceli: Details: 60 year old female here for follow up after recent admission for acute gangrenous cholecystitis on 08/02/25 and discharged 08/05/25. She underwent laparoscopic cholecystectomy on 08/02/[address] Bell. She tolerated the procedure well but remained inpatient for pain control. Her REBECCA drain was removed prior to discharge. She reports feeling well since discharge. She took tylenol for the first week following discharge however she has not needed anything over the past few days. She is tolerating a solid diet without nausea or vomiting. She has been eating frequent smaller meals throughout the day because it is easier on her digestion and has been avoiding fattier foods. She is moving her bowels normally. She has no concerns. [facility], [facility] Medical History (Updated 08/13/25 @ 00:01 by Khloe José) Anxiety and depression Surgical History (Updated 08/13/25 @ 16:07 by WINSTON Menchaca) Hx laparoscopic cholecystectomy (08/02/25) Social History Household Members: None Housing: Apartment Do you presently have visiting nurse or other home services: No Alcohol intake: never Patient Tobacco Use Status: Never used Tobacco service: No Review of Systems Const Denies chills and Denies fever(s) ENT Denies dizziness Card Denies chest pain Resp Denies cough GI Reports as per HPI Skin/Breast Denies erythema, Denies rash and Denies jaundice Neuro Denies dizziness Physical Exam Vital Signs: Last Vital Signs BP 121/74 08/15/25 11:25 BMI result Body Mass Index 29.0 Const General: comfortable, no acute distress and alert Orientation/consciousness: patient oriented x3 Resp Effort & Inspection: normal respiratory effort and able to speak in complete sentences GI Other: incisions well approximated and healed, mild induration at epigastric port site, no surrounding erythema soft, nontender Inspection: No distended Palpation (GI): no guarding Percussion: Yes normal to percussion Skin General skin exam: no rashes or lesions noted and no jaundice Neuro General: patient oriented x3 and moves all extremities Results Reviewed Results Reviewed: Gallbladder, cholecystectomy: Acute cholecystitis with necrosis and cholelithiasis; negative for malignancy Assessment & Plan Assessment & Plan (1) S/P laparoscopic cholecystectomy: Code(s): Z90.49 - Acquired absence of other specified parts of digestive tract Category: Surgical Plan 60 year old female s/p laparoscopic cholecystectomy on 08/02/[address] Bell. She tolerated the procedure well and is doing well post operatively. Her abdomen is benign with clean incisions with evidence of infection. She was instructed on continuing heavy lifting and strenuous activity restrictions for another week. She has no concerns and can follow up as needed. Medications: Discontinued oxycodone-acetaminophen 5-325 mg Partial Fill upon patient request. Discontinued Reason: Patient Completed Course 1 tab PO Q6H PRN 20 tabs 0RF pain Coding Level of Care Code Global (34109) Diagnoses S/P laparoscopic cholecystectomy Z90.49
[2025-08-15 11:25] VITALS: BP 121/74; BMI 29.0
== END 2025-08-15 11:39 | disposition home or self-care (01) ==
LOC: HO.HGS 10:54
PROVIDERS: Visit Provider Physician Assistant Surgical
DX: Z90.49 Acquired absence of other specified parts of digestive tract (principal)
CPT/HCPCS: 99024